=== PATIENT | female | born 1940 | race Caucasian/White ===

== ENCOUNTER → 2016-10-31 | Outpatient (CLI) | payer MEDICARE, OTHER | LOC: LAB 08:50 | DX: I10 Essential (primary) hypertension (principal); K90.89 Other intestinal malabsorption; E78.2 Mixed hyperlipidemia; Z12.11 Encounter for screening for malignant neoplasm of colon ==

== ENCOUNTER → 2016-11-05 | Outpatient (CLI) | payer MEDICARE, OTHER | LOC: RAD 15:09 | DX: M19.042 Primary osteoarthritis, left hand (principal); M85.842 Other specified disorders of bone density and structure, left hand ==

== ENCOUNTER → 2017-01-17 | Outpatient (CLI) | payer MEDICARE, OTHER | LOC: LAB 08:57 | DX: E03.4 Atrophy of thyroid (acquired) (principal) ==

== ENCOUNTER → 2018-04-04 | Outpatient (CLI) | payer MEDICARE, OTHER ==
[2018-04-04 13:02] LABS: HEMOGLOBIN 13.6 g/dL (12.5-16.0); MEAN CELL VOLUME 86 fl (78-100); MEAN CORPUSCULAR HEMOGLOBIN 28 pg (27-31); MEAN CORPUSCULAR HGB CONC 33 g/dL (33-37); MEAN PLATELET VOLUME 9.7 fl (7.4-10.4); PLATELET COUNT 310 K/mm3 (130-400); RED BLOOD COUNT 4.79 M/mm3 (4.10-5.30); RED CELL DISTRIBUTION WIDTH 13.1 % (11.5-14.5); WHITE BLOOD COUNT 6.4 K/mm3 (4.8-10.8)
[2018-04-04 13:04] LABS: ALBUMIN 4.4 g/dL (3.5-5.0); CALCIUM 9.5 mg/dL (8.4-10.2); TOTAL BILIRUBIN 0.6 mg/dL (0.2-1.3)
[2018-04-04 14:03] LABS: LYMPHOCYTE 23 % (20-51); MONOCYTE 12 % (3-10); NEUTROPHILS 63 % (42-75)
[2018-04-04 14:25] LABS: ERYTHROCYTE SEDIMENTATION RATE 15 mm/hr (0-30)
== END ==
LOC: LAB 12:27
PROVIDERS: Internal Medicine
DX: Z12.11 Encounter for screening for malignant neoplasm of colon (principal); I10 Essential (primary) hypertension; K90.9 Intestinal malabsorption, unspecified; E78.5 Hyperlipidemia, unspecified; E03.9 Hypothyroidism, unspecified

== ENCOUNTER → 2020-01-04 | Outpatient (CLI) | payer MEDICARE, OTHER ==
[2020-01-04 12:30] LABS: EOS % 0.5 % (1.0-5.0); HEMATOCRIT 42.1 % (37.0-47.0); HEMOGLOBIN 13.9 g/dL (12.5-16.0); LYMPH# 1.5 (1.50-4.00); MEAN CELL VOLUME 86 fl (78-100); MEAN CORPUSCULAR HEMOGLOBIN 28 pg (27-31); MEAN CORPUSCULAR HGB CONC 33 g/dL (33-37); MEAN PLATELET VOLUME 8.8 fl (7.4-10.4); MONO # 0.6 (0.20-0.80); NEU # 3.4 (1.40-6.50); PLATELET COUNT 298 K/mm3 (130-400); RED BLOOD COUNT 4.92 M/mm3 (4.10-5.30); RED CELL DISTRIBUTION WIDTH 12.8 % (11.5-14.5); WHITE BLOOD COUNT 5.6 K/mm3 (4.8-10.8)
[2020-01-04 12:44] LABS: POTASSIUM 3.7 mmol/L (3.5-5.1)
[2020-01-04 12:45] LABS: ALBUMIN 4.1 g/dL (3.4-4.8)
[2020-01-04 12:46] LABS: CALCIUM 9.6 mg/dL (8.3-10.5)
[2020-01-04 12:47] LABS: TOTAL PROTEIN 8.3 g/dL (6.2-8.1)
[2020-01-04 12:49] LABS: TOTAL BILIRUBIN 0.4 mg/dL (0.2-1.2)
[2020-01-04 13:31] LABS: ERYTHROCYTE SEDIMENTATION RATE 23 mm/hr (0-30)
== END ==
LOC: LAB 12:18
PROVIDERS: Internal Medicine
DX: Z12.11 Encounter for screening for malignant neoplasm of colon (principal); I10 Essential (primary) hypertension; K90.9 Intestinal malabsorption, unspecified; E78.5 Hyperlipidemia, unspecified; E03.9 Hypothyroidism, unspecified

== ENCOUNTER → 2021-06-13 | Outpatient (CLI) | payer MEDICARE, OTHER ==
[2021-06-13 14:40] LABS: BASO # 0.02 K/mm3 (0.02-0.10); EOS # 0.06 K/mm3 (0.04-0.40); HEMATOCRIT 42.7 % (37.0-47.0); HEMOGLOBIN 13.9 g/dL (12.5-16.0); MEAN CELL VOLUME 88 fl (78-100); MEAN CORPUSCULAR HEMOGLOBIN 29 pg (27-31); MEAN CORPUSCULAR HGB CONC 33 g/dL (33-37); MEAN PLATELET VOLUME 8.8 fl (7.4-10.4); NEU # 3.56 K/mm3 (1.40-6.50); PLATELET COUNT 301 K/mm3 (130-400); RED BLOOD COUNT 4.84 M/mm3 (4.10-5.30); RED CELL DISTRIBUTION WIDTH 12.6 % (11.5-14.5); WHITE BLOOD COUNT 5.9 K/mm3 (4.8-10.8)
[2021-06-13 14:50] LABS: ALBUMIN 4.2 g/dL (3.4-4.8); POTASSIUM 4.4 mmol/L (3.5-5.1)
[2021-06-13 14:51] LABS: CALCIUM 9.9 mg/dL (8.3-10.5)
[2021-06-13 14:52] LABS: TOTAL PROTEIN 8.2 g/dL (6.2-8.1)
[2021-06-13 14:54] LABS: TOTAL BILIRUBIN 0.4 mg/dL (0.2-1.2)
== END ==
LOC: LAB 14:19
PROVIDERS: Internal Medicine
DX: E03.9 Hypothyroidism, unspecified (principal); E78.2 Mixed hyperlipidemia; K90.9 Intestinal malabsorption, unspecified; K91.1 Postgastric surgery syndromes

== ENCOUNTER 2023-11-26 16:44 | Emergency (ER) | payer MEDICARE, OTHER ==
[~2023-11-26] VITALS: Ht 154.9 cm; Wt 65.0 kg
[2023-11-26] MEDS ORDERED: CHOLESTYRA PO (17:11)
[2023-11-26] MEDS ORDERED: METOPROLOL SUCC50 M1 PO (17:12)
[2023-11-26] MEDS ORDERED: LEVOTHYROXINE0.05 MG PO (17:12)
[2023-11-26] MEDS ORDERED: AMLODIPINE BESYL5 MG PO (17:13)
[2023-11-26] MEDS ORDERED: HCTZ 25MG25 MG PO (17:13)
[2023-11-26] MEDS ORDERED: VITAMIN D350 MC1 PO (17:14)
[2023-11-26] MEDS ORDERED: MULTIVITAMIN1 EACH PO (17:14)
[2023-11-26] MEDS ORDERED: GRAPE SEED EXTR PO (17:15)
[2023-11-26] MEDS ORDERED: ZESTRIL5 M1 PO (17:15)
[2023-11-26] MEDS ORDERED: NIACIN PO (17:16)
[2023-11-26] MEDS ORDERED: Iohexol 350 - 100 ML VIAL IV ONE (17:32)
[2023-11-26] MEDS ORDERED: CEPHALEXIN500 M2 PO (18:38)
[2023-11-26] MEDS ORDERED: Cephalexin 500 MG CAP PO ONE (18:45)
[2023-11-26 19:12] VITALS: BP 151/79
== END 2023-11-26 19:12 | disposition home or self-care (01) ==
LOC: ED 16:44
DX: L03.115 Cellulitis of right lower limb (principal); E87.1 Hypo-osmolality and hyponatremia
CPT/HCPCS: J1650; Q9967

== ENCOUNTER → 2023-11-26 | Outpatient (CLI) | payer MEDICARE, OTHER ==
[~2023-11-26] MED LIST: AMLODIPINE BESYL5 MG PO; CEPHALEXIN500 M2 PO; CHOLESTYRA PO; GRAPE SEED EXTR PO; HCTZ 25MG25 MG PO; LEVOTHYROXINE0.05 MG PO; METOPROLOL SUCC50 M1 PO; MULTIVITAMIN1 EACH PO; NIACIN PO; VITAMIN D350 MC1 PO; ZESTRIL5 M1 PO
[2023-11-26 15:38] LABS: BASO # 0.02 K/mm3 (0.02-0.10); EOS # 0.09 K/mm3 (0.04-0.40); HEMATOCRIT 39.2 % (37.0-47.0); HEMOGLOBIN 13.1 g/dL (12.5-16.0); LYMPH# 1.57 K/mm3 (1.50-4.00); MEAN CELL VOLUME 83 fl (78-100); MEAN CORPUSCULAR HEMOGLOBIN 28 pg (27-31); MEAN CORPUSCULAR HGB CONC 33 g/dL (33-37); MEAN PLATELET VOLUME 8.3 fl (7.4-10.4); MONO # 1.44 K/mm3 (0.20-0.80); NEU # 6.23 K/mm3 (1.40-6.50); PLATELET COUNT 443 K/mm3 (130-400); RED BLOOD COUNT 4.75 M/mm3 (4.10-5.30); RED CELL DISTRIBUTION WIDTH 12.7 % (11.5-14.5); WHITE BLOOD COUNT 9.4 K/mm3 (4.8-10.8)
[2023-11-26 15:43] LABS: CALCIUM 9.9 mg/dL (8.3-10.5)
[2023-11-26 16:15] LABS: D-DIMER 5.39 mg/L FEU (0.15-0.50)
== END ==
LOC: LAB 15:20
PROVIDERS: Nurse Practitioner Family
DX: R22.40 Localized swelling, mass and lump, unspecified lower limb (principal); M79.671 Pain in right foot

== ENCOUNTER → 2023-11-27 | Outpatient (CLI) | payer MEDICARE, OTHER | LOC: RAD 12:33 | DX: R22.40 Localized swelling, mass and lump, unspecified lower limb (principal) ==

== ENCOUNTER → 2023-11-28 | Outpatient (CLI) | payer MEDICARE, OTHER ==
[2023-11-28 15:21] LABS: BASO # 0.02 K/mm3 (0.02-0.10); EOS # 0.15 K/mm3 (0.04-0.40); HEMATOCRIT 40.7 % (37.0-47.0); HEMOGLOBIN 13.4 g/dL (12.5-16.0); LYMPH# 1.37 K/mm3 (1.50-4.00); MEAN CELL VOLUME 83 fl (78-100); MEAN CORPUSCULAR HEMOGLOBIN 27 pg (27-31); MEAN CORPUSCULAR HGB CONC 33 g/dL (33-37); MONO # 1.03 K/mm3 (0.20-0.80); NEU # 4.87 K/mm3 (1.40-6.50); PLATELET COUNT 454 K/mm3 (130-400); RED BLOOD COUNT 4.91 M/mm3 (4.10-5.30); RED CELL DISTRIBUTION WIDTH 12.6 % (11.5-14.5); WHITE BLOOD COUNT 7.5 K/mm3 (4.8-10.8)
[2023-11-28 15:30] LABS: ALBUMIN 3.8 g/dL (3.4-4.8)
[2023-11-28 15:32] LABS: CALCIUM 9.9 mg/dL (8.3-10.5)
[2023-11-28 15:33] LABS: TOTAL PROTEIN 8.1 g/dL (6.2-8.1)
[2023-11-28 15:40] LABS: MAGNESIUM 1.75 mg/dL (1.60-2.60)
[2023-11-28 16:18] LABS: TOTAL BILIRUBIN 0.5 mg/dL (0.2-1.2)
== END ==
LOC: LAB 15:02
PROVIDERS: Internal Medicine
DX: E03.9 Hypothyroidism, unspecified (principal); I10 Essential (primary) hypertension; J18.9 Pneumonia, unspecified organism

== ENCOUNTER → 2023-12-20 | Outpatient (CLI) | payer MEDICARE, OTHER ==
[2023-12-20 13:58] LABS: ALBUMIN 3.8 g/dL (3.4-4.8)
[2023-12-20 13:59] LABS: CALCIUM 9.5 mg/dL (8.3-10.5)
[2023-12-20 14:01] LABS: TOTAL PROTEIN 7.7 g/dL (6.2-8.1)
[2023-12-20 14:02] LABS: TOTAL BILIRUBIN 0.4 mg/dL (0.2-1.2)
[2023-12-20 14:07] LABS: MAGNESIUM 1.83 mg/dL (1.60-2.60)
== END ==
LOC: LAB 13:37
PROVIDERS: Internal Medicine
DX: I87.2 Venous insufficiency (chronic) (peripheral) (principal)

== ENCOUNTER → 2024-06-23 | Outpatient (CLI) | payer MEDICARE, OTHER ==
[2024-06-23 15:04] LABS: ALBUMIN 4.2 g/dL (3.4-4.8)
[2024-06-23 15:06] LABS: CALCIUM 9.3 mg/dL (8.3-10.5)
[2024-06-23 15:07] LABS: TOTAL PROTEIN 8.4 g/dL (6.2-8.1)
[2024-06-23 15:09] LABS: TOTAL BILIRUBIN 0.5 mg/dL (0.2-1.2)
[2024-06-23 15:14] LABS: MAGNESIUM 1.87 mg/dL (1.60-2.60)
== END ==
LOC: LAB 14:43
PROVIDERS: Internal Medicine
DX: E03.9 Hypothyroidism, unspecified (principal); K90.9 Intestinal malabsorption, unspecified; I10 Essential (primary) hypertension